=== PATIENT | male | born 1965 ===

== ENCOUNTER 2019-07-06 14:47 | Inpatient (IN) ==
[2019-07-06] MEDS ORDERED: GLUCAGON 1 MG VIAL IM PRN (17:20)
[2019-07-06] MEDS ORDERED: DEXTROSE 10% 250 ML BAG IV PRN (17:20)
[2019-07-06] MEDS ORDERED: DEXTROSE 50% 25 GM/50 ML VIAL IV PRN (17:57)
[2019-07-06 18:16] LABS: Basophils # 0.1 10*3/uL (0.0-0.2); Basophils % 0.2 % (0.0-0.8); Eosinophils # 0.3 10*3/uL (0.0-0.87); Eosinophils % 1.4 % (0.00-10.9); Hematocrit 30.5 VOL% (42.0-52.0); Hemoglobin 10.2 GM/DL (14.0-18.0); Immature Granulocytes Absolute 0.24 #; Lymphocytes # 1.3 10*3/uL (1.4-4.0); Lymphocytes % 5.6 % (21.2-54.2); Mean Corpuscular HGB Conc 33.4 GM/DL (32-36); Mean Corpuscular Volume 88.9 FL (87-102); Mean Platelet Volume 9.4 FL (9.6-12.0); Monocytes % 7.6 % (1.7-12.7); Neutrophils % 84.2 % (38.7-73.9); Platelet Count 339 T/CUMM (130-400); Red Blood Count 3.43 MC/CUMM (3.8-5.5); White Blood Count 23.7 T/CUMM (4-12)
[2019-07-06 18:32] LABS: Albumin 2.3 G/DL (3.4-5.0); Bilirubin,Total 0.7 MG/DL (0.2-1.0); Calcium 8.5 MG/DL (8.5-10.1); Osmolality,Calculated 274.1 MOS/KG (273-304); Total Protein 7.9 G/DL (6.4-8.3)
[2019-07-06 18:41] LABS: Band Neutrophils 1 % (0-10); Eosinophils 3 % (0-10); Lymphocytes 6 % (20-55); Segmented Neutrophils 84 % (50-85); Total Cells Counted 100
[2019-07-06 18:42] LABS: Platelet Estimate Normal; Reactive Lymphocytes Slight; Rouleau Slight
[2019-07-06] MEDS: SODIUM CHLORIDE 0.9% 1,000 ML IV SCH (19:15)
[2019-07-06] MEDS: POTASSIUM CHLORIDE 20 MEQ TABLET PO PRN (21:31)
[2019-07-06] MEDS: SIMVASTATIN 20 MG TABLET PO SCH (21:31)
[2019-07-06] MEDS: INSULIN LISPRO 100 UNIT/ML SUBCUT SCH (21:37)
[2019-07-06] MEDS: PIPERACILLIN/TAZOBACTAM 3,375 MG in SODIUM CHLORIDE 0.9% 100 ML IV SCH (21:40)
[2019-07-07] MEDS: POTASSIUM CHLORIDE 20 MEQ TABLET PO PRN (01:05)
[2019-07-07] MEDS: VANCOMYCIN INJ 1,250 MG in SODIUM CHLORIDE 0.9% 250 ML IV SCH ×2 (01:07→15:45)
[2019-07-07] MEDS: PIPERACILLIN/TAZOBACTAM 3,375 MG in SODIUM CHLORIDE 0.9% 100 ML IV SCH ×3 (03:10→22:14)
[2019-07-07 06:22] LABS: Basophils % 0.2 % (0.0-0.8); Eosinophils # 0.3 10*3/uL (0.0-0.87); Eosinophils % 1.9 % (0.00-10.9); Hematocrit 30.8 VOL% (42.0-52.0); Hemoglobin 10.3 GM/DL (14.0-18.0); Immature Granulocytes % 0.9 %; Immature Granulocytes Absolute 0.17 #; Lymphocytes # 1.6 10*3/uL (1.4-4.0); Lymphocytes % 8.6 % (21.2-54.2); Mean Corpuscular HGB Conc 33.4 GM/DL (32-36); Mean Corpuscular Volume 89.8 FL (87-102); Mean Platelet Volume 9.4 FL (9.6-12.0); Monocytes % 7.6 % (1.7-12.7); Neutrophils % 80.8 % (38.7-73.9); Platelet Count 347 T/CUMM (130-400); Red Blood Count 3.43 MC/CUMM (3.8-5.5); Red Cell Distribution Width 11.9 % (9.3-17.3); White Blood Count 18.3 T/CUMM (4-12)
[2019-07-07] MEDS: SODIUM CHLORIDE 0.9% 1,000 ML IV SCH ×2 (06:42→16:37)
[2019-07-07 06:50] LABS: Albumin 2.1 G/DL (3.4-5.0); Bilirubin,Total 0.9 MG/DL (0.2-1.0); Calcium 8.4 MG/DL (8.5-10.1); Total Protein 7.4 G/DL (6.4-8.3)
[2019-07-07] MEDS: INSULIN LISPRO 100 UNIT/ML SUBCUT SCH ×4 (07:38→21:56)
[2019-07-07] MEDS ORDERED: LIDOCAINE 1% 20 ML VIAL ONE (10:30)
[2019-07-07] MEDS: ASPIRIN EC 325 MG TABLET PO SCH (10:49)
[2019-07-07] MEDS: hydroCHLOROthiazide 25 MG TABLET PO SCH (10:53)
[2019-07-07] MEDS: captopriL 25 MG TABLET PO SCH (10:53)
[2019-07-07] MEDS ORDERED: MIDAZOLAM 2 MG/2 ML VIAL ONE (11:58)
[2019-07-07] MEDS ORDERED: LIDOCAINE 2% 5 ML VIAL ONE (11:59)
[2019-07-07] MEDS ORDERED: propofoL 200 MG/20 ML VIAL IV ONE (11:59)
[2019-07-07] MEDS ORDERED: KETAMINE 500 MG/10 ML VIAL ONE (12:00)
[2019-07-07] MEDS ORDERED: fentaNYL 100 MCG/2 ML VIAL ONE (12:00)
[2019-07-07] MEDS: SIMVASTATIN 20 MG TABLET PO SCH (21:34)
[2019-07-08] MEDS: PIPERACILLIN/TAZOBACTAM 3,375 MG in SODIUM CHLORIDE 0.9% 100 ML IV SCH ×3 (05:57→21:00)
[2019-07-08 06:57] LABS: Basophils % 0.2 % (0.0-0.8); Eosinophils # 0.5 10*3/uL (0.0-0.87); Eosinophils % 2.3 % (0.00-10.9); Hematocrit 29.9 VOL% (42.0-52.0); Hemoglobin 9.8 GM/DL (14.0-18.0); Immature Granulocytes % 0.9 %; Immature Granulocytes Absolute 0.17 #; Lymphocytes # 1.7 10*3/uL (1.4-4.0); Lymphocytes % 8.6 % (21.2-54.2); Mean Corpuscular HGB Conc 32.8 GM/DL (32-36); Mean Corpuscular Volume 90.9 FL (87-102); Mean Platelet Volume 9.4 FL (9.6-12.0); Monocytes % 7.6 % (1.7-12.7); Neutrophils % 80.4 % (38.7-73.9); Platelet Count 355 T/CUMM (130-400); Red Blood Count 3.29 MC/CUMM (3.8-5.5); Red Cell Distribution Width 11.9 % (9.3-17.3); White Blood Count 19.7 T/CUMM (4-12)
[2019-07-08 07:28] LABS: Albumin 1.7 G/DL (3.4-5.0); Calcium 8.4 MG/DL (8.5-10.1); Total Protein 7.3 G/DL (6.4-8.3)
[2019-07-08] MEDS ORDERED: LIDOCAINE 1% 20 ML VIAL ONE (08:33)
[2019-07-08] MEDS: INSULIN LISPRO 100 UNIT/ML SUBCUT SCH ×4 (08:49→21:16)
[2019-07-08] MEDS: hydroCHLOROthiazide 25 MG TABLET PO SCH (08:49)
[2019-07-08] MEDS: captopriL 25 MG TABLET PO SCH (08:49)
[2019-07-08] MEDS ORDERED: MIDAZOLAM 2 MG/2 ML VIAL ONE (09:52)
[2019-07-08] MEDS ORDERED: LIDOCAINE 2% 5 ML VIAL ONE (09:53)
[2019-07-08] MEDS ORDERED: propofoL 200 MG/20 ML VIAL IV ONE (09:53)
[2019-07-08] MEDS ORDERED: fentaNYL 100 MCG/2 ML VIAL ONE (09:53)
[2019-07-08] MEDS ORDERED: KETAMINE 500 MG/10 ML VIAL ONE (09:53)
[2019-07-08] MEDS: VANCOMYCIN INJ 1,250 MG in SODIUM CHLORIDE 0.9% 250 ML IV SCH (12:04)
[2019-07-08] MEDS: ASPIRIN EC 325 MG TABLET PO SCH (12:05)
[2019-07-08] MEDS: SODIUM CHLORIDE 0.9% 1,000 ML IV SCH ×2 (12:05→12:36)
[2019-07-08] MEDS: SIMVASTATIN 20 MG TABLET PO SCH (20:14)
[2019-07-09] MEDS: VANCOMYCIN INJ 1,250 MG in SODIUM CHLORIDE 0.9% 250 ML IV SCH (03:14)
[2019-07-09] MEDS: PIPERACILLIN/TAZOBACTAM 3,375 MG in SODIUM CHLORIDE 0.9% 100 ML IV SCH ×2 (05:25→15:20)
[2019-07-09] MEDS: INSULIN LISPRO 100 UNIT/ML SUBCUT SCH ×2 (09:18→13:16)
[2019-07-09] MEDS: captopriL 25 MG TABLET PO SCH (09:53)
[2019-07-09] MEDS: ASPIRIN EC 325 MG TABLET PO SCH (09:53)
[2019-07-09] MEDS: hydroCHLOROthiazide 25 MG TABLET PO SCH (09:53)
[2019-07-09] MEDS ORDERED: ONDANSETRON 4 MG/2 ML VIAL IV PRN (10:10)
[2019-07-09 12:51] VITALS: BP 163/77
== END 2019-07-09 16:11 | disposition home or self-care (01) | DRG 256 ==
LOC: SUATTDRO 17:01 → N.3E 17:01
PROVIDERS: ADMIT Internal Medicine; ATTEND Internal Medicine

== ENCOUNTER 2022-04-24 22:22 | Inpatient (IN) ==
[2022-04-25] MEDS ORDERED: DEXTROSE 50% 25 GM/50 ML VIAL IV PRN (01:47)
[2022-04-25] MEDS ORDERED: ONDANSETRON 4 MG/2 ML VIAL IV PRN (01:47)
[2022-04-25] MEDS ORDERED: MAGNESIUM SULF RIDER 4 GM/100 ML PREMIX IV PRN (01:47)
[2022-04-25] MEDS ORDERED: GLUCAGON 1 MG VIAL IM PRN (01:47)
[2022-04-25] MEDS ORDERED: MAGNESIUM SULF RIDER 2 GM/50 ML PREMIX IV PRN (01:47)
[2022-04-25] MEDS ORDERED: ACETAMINOPHEN 325 MG TABLET PO PRN (01:47)
[2022-04-25] MEDS ORDERED: DEXTROSE 10% 250 ML BAG IV PRN (02:06)
[2022-04-25] MEDS: LEVOFLOXACIN INJ 500 MG/100 ML PREMIX IV SCH (04:29)
[2022-04-25] MEDS: ALBUTEROL/IPRATROPIUM 3 ML NEB RESP TX SCH ×3 (07:33→19:56)
[2022-04-25 07:52] LABS: Basophils % 0.2 % (0.0-0.8); Eosinophils % 0.1 % (0.00-10.9); Hematocrit 28.5 VOL% (42.0-52.0); Immature Granulocytes % 0.6 %; Lymphocytes # 0.5 10*3/uL (1.4-4.0); Lymphocytes % 2.8 % (21.2-54.2); Mean Corpuscular HGB Conc 31.6 GM/DL (32-36); Mean Corpuscular Volume 97.9 FL (87-102); Mean Platelet Volume 9.5 FL (9.6-12.0); Monocytes # 1.1 10*3/uL (0.11-0.8); Monocytes % 6.1 % (1.7-12.7); Neutrophils % 90.2 % (38.7-73.9); Platelet Count 233 T/CUMM (130-400); Red Blood Count 2.91 MC/CUMM (3.8-5.5); Red Cell Distribution Width 13.5 % (9.3-17.3)
[2022-04-25 08:01] LABS: INR 1.1; PT Patient Result 11.6 SECS (10.1-12.1)
[2022-04-25 08:12] LABS: Hypochromia Slight; Lymphocytes 2 % (20-55); Platelet Estimate Adequate; Total Cells Counted 100
[2022-04-25 08:13] LABS: Microcytosis Slight
[2022-04-25 08:14] LABS: Bilirubin,Total 0.8 MG/DL (0.20-1.00); Calcium 8.8 MG/DL (8.5-10.1); Osmolality,Calculated 310.4 MOS/KG (273-304); Potassium 4.9 MMOL/L (3.5-5.1); Total Protein 6.7 G/DL (6.4-8.2)
[2022-04-25 08:59] LABS: Risk Ratio 2.11; VLDL Cholesterol 15.6 MG/DL
[2022-04-25] MEDS ORDERED: HEPARIN 5,000 UNIT/1 ML VIAL SUBCUT SCH (09:00)
[2022-04-25] MEDS: hydrALAZINE 25 MG TABLET PO SCH ×2 (11:52→20:44)
[2022-04-25] MEDS: ISOSORBIDE MONONITRATE 30 MG TABLET PO SCH (11:52)
[2022-04-25] MEDS: PANTOPRAZOLE 40 MG TABLET PO SCH (11:52)
[2022-04-25] MEDS: carvediloL 3.125 MG TABLET PO SCH ×2 (11:52→20:44)
[2022-04-25] MEDS: FUROSEMIDE 40 MG/4 ML VIAL IV SCH ×2 (11:54→20:00)
[2022-04-25] MEDS: INSULIN REGULAR 100 UNIT/ML SUBCUT SCH ×4 (12:04→22:44)
[2022-04-25] MEDS: FUROSEMIDE INJ 200 MG in SODIUM CHLORIDE 0.9% 80 ML IV SCH (20:06)
[2022-04-25] MEDS: SIMVASTATIN 20 MG TABLET PO SCH (20:44)
[2022-04-26] MEDS: ALBUTEROL/IPRATROPIUM 3 ML NEB RESP TX SCH ×4 (04:20→21:15)
[2022-04-26 05:41] LABS: Basophils % 0.3 % (0.0-0.8); Eosinophils # 0.7 10*3/uL (0.0-0.87); Eosinophils % 7.4 % (0.00-10.9); Hematocrit 24.5 VOL% (42.0-52.0); Hemoglobin 7.6 GM/DL (14.0-18.0); Immature Granulocytes % 0.4 %; Immature Granulocytes Absolute 0.04 #; Lymphocytes # 0.8 10*3/uL (1.4-4.0); Lymphocytes % 8.7 % (21.2-54.2); Mean Corpuscular Volume 98.8 FL (87-102); Mean Platelet Volume 9.5 FL (9.6-12.0); Monocytes # 1.1 10*3/uL (0.11-0.8); Monocytes % 11.4 % (1.7-12.7); Neutrophils % 71.8 % (38.7-73.9); Platelet Count 189 T/CUMM (130-400); Red Blood Count 2.48 MC/CUMM (3.8-5.5); Red Cell Distribution Width 13.5 % (9.3-17.3); White Blood Count 9.71 T/CUMM (4-12)
[2022-04-26 06:04] LABS: Phosphorous 5.1 MG/DL (2.5-4.9); Uric Acid 7.8 MG/DL (3.5-7.2)
[2022-04-26 06:17] LABS: Albumin 2.7 G/DL (3.4-5.0); Bilirubin,Total 0.6 MG/DL (0.20-1.00); Calcium 8.5 MG/DL (8.5-10.1); Osmolality,Calculated 303.8 MOS/KG (273-304); Total Protein 6.2 G/DL (6.4-8.2)
[2022-04-26 06:25] LABS: Bacteria,Urine Occasional /HPF (Few); Hyaline Casts,Urine 3 /LPF (0-3); Mucus,Urine Occasional /LPF (Occasional); RBC,Urine 31 /HPF (0-4)
[2022-04-26 06:27] LABS: Bilirubin,Urine Negative (Negative); Blood, Urine Moderate mg/dL (Negative); Glucose,Urine (UA) Negative (Negative); Ketones,Urine Negative (Negative); Nitrite,Urine Negative (Negative); Protein,Urine >=300 mg/dL (Negative); Urine Appearance Clear (Clear); Urine Color Yellow (Yellow); Urine Urobilinogen 0.2 eU/dL (<2.0); Urine pH 5.5 (4.5-8.0)
[2022-04-26] MEDS: LEVOTHYROXINE 75 MCG TABLET PO SCH (06:33)
[2022-04-26] MEDS ORDERED: ASPIRIN EC 325 MG TABLET PO SCH (09:00)
[2022-04-26] MEDS ORDERED: carvediloL 6.25 MG TABLET PO SCH (09:00)
[2022-04-26] MEDS: INSULIN REGULAR 100 UNIT/ML SUBCUT SCH ×4 (09:50→21:45)
[2022-04-26] MEDS: amLODIPine 10 MG TABLET PO SCH (09:53)
[2022-04-26] MEDS: PANTOPRAZOLE 40 MG TABLET PO SCH (09:53)
[2022-04-26] MEDS: ISOSORBIDE MONONITRATE 30 MG TABLET PO SCH (09:53)
[2022-04-26] MEDS: FUROSEMIDE INJ 200 MG in SODIUM CHLORIDE 0.9% 80 ML IV SCH (16:31)
[2022-04-26] MEDS: carvediloL 12.5 MG TABLET PO SCH (16:36)
[2022-04-26] MEDS: SIMVASTATIN 20 MG TABLET PO SCH (21:46)
[2022-04-27] MEDS: ALBUTEROL/IPRATROPIUM 3 ML NEB RESP TX SCH ×4 (01:58→18:55)
[2022-04-27] MEDS: LEVOFLOXACIN INJ 500 MG/100 ML PREMIX IV SCH (02:22)
[2022-04-27] MEDS: LEVOTHYROXINE 75 MCG TABLET PO SCH (06:13)
[2022-04-27 09:11] LABS: Osmolality,Calculated 309.6 MOS/KG (273-304); Potassium 4.1 MMOL/L (3.5-5.1)
[2022-04-27] MEDS: INSULIN REGULAR 100 UNIT/ML SUBCUT SCH ×4 (09:23→21:54)
[2022-04-27] MEDS: carvediloL 12.5 MG TABLET PO SCH ×2 (09:29→16:50)
[2022-04-27] MEDS: PANTOPRAZOLE 40 MG TABLET PO SCH (09:29)
[2022-04-27] MEDS: ASPIRIN EC 81 MG TABLET PO SCH (09:30)
[2022-04-27] MEDS: ISOSORBIDE MONONITRATE 30 MG TABLET PO SCH (09:30)
[2022-04-27] MEDS: amLODIPine 10 MG TABLET PO SCH (09:30)
[2022-04-27] MEDS: FUROSEMIDE INJ 200 MG in SODIUM CHLORIDE 0.9% 80 ML IV SCH (10:39)
[2022-04-27] MEDS ORDERED: DARBEPOETIN ALFA 100 MCG/ML VIAL SUBCUT SCH (15:00)
[2022-04-27] MEDS: SIMVASTATIN 20 MG TABLET PO SCH (21:54)
[2022-04-28] MEDS: ALBUTEROL/IPRATROPIUM 3 ML NEB RESP TX SCH ×4 (00:40→19:15)
[2022-04-28 04:48] LABS: Basophils # 0.1 10*3/uL (0.0-0.2); Basophils % 0.4 % (0.0-0.8); Eosinophils # 1.1 10*3/uL (0.0-0.87); Eosinophils % 9.1 % (0.00-10.9); Hemoglobin 7.7 GM/DL (14.0-18.0); Immature Granulocytes % 0.4 %; Immature Granulocytes Absolute 0.05 #; Lymphocytes % 8.2 % (21.2-54.2); Mean Corpuscular HGB Conc 30.8 GM/DL (32-36); Mean Corpuscular Volume 98.4 FL (87-102); Mean Platelet Volume 9.3 FL (9.6-12.0); Monocytes # 1.3 10*3/uL (0.11-0.8); Monocytes % 10.9 % (1.7-12.7); Platelet Count 192 T/CUMM (130-400); Red Blood Count 2.54 MC/CUMM (3.8-5.5); Red Cell Distribution Width 13.4 % (9.3-17.3)
[2022-04-28 05:23] LABS: Calcium 8.5 MG/DL (8.5-10.1); Osmolality,Calculated 308.8 MOS/KG (273-304); Potassium 4.1 MMOL/L (3.5-5.1)
[2022-04-28 05:33] LABS: % Iron Saturation 7.9 % (18-50); Ferritin 94.6 ng/mL (26-388)
[2022-04-28] MEDS: FUROSEMIDE INJ 200 MG in SODIUM CHLORIDE 0.9% 80 ML IV SCH (06:18)
[2022-04-28] MEDS: LEVOTHYROXINE 75 MCG TABLET PO SCH (06:19)
[2022-04-28] MEDS: INSULIN REGULAR 100 UNIT/ML SUBCUT SCH ×4 (07:30→22:22)
[2022-04-28 08:24] LABS: Protein/Creatinine Ratio,Urine 3.1 RATIO
[2022-04-28] MEDS: ASPIRIN EC 81 MG TABLET PO SCH (08:42)
[2022-04-28] MEDS: ISOSORBIDE MONONITRATE 30 MG TABLET PO SCH (08:42)
[2022-04-28] MEDS: PANTOPRAZOLE 40 MG TABLET PO SCH (08:42)
[2022-04-28] MEDS: carvediloL 12.5 MG TABLET PO SCH ×2 (08:42→16:36)
[2022-04-28] MEDS: amLODIPine 10 MG TABLET PO SCH (08:42)
[2022-04-28] MEDS: ERGOCALCIFEROL 2000 UNIT PO SCH (08:44)
[2022-04-28] MEDS: FERRIC GLUCONATE COMPLEX 125 MG in SODIUM CHLORIDE 0.9% 100 ML IV SCH (10:15)
[2022-04-28] MEDS: SIMVASTATIN 20 MG TABLET PO SCH (22:22)
[2022-04-29] MEDS: ALBUTEROL/IPRATROPIUM 3 ML NEB RESP TX SCH ×4 (01:55→20:13)
[2022-04-29] MEDS: LEVOFLOXACIN INJ 500 MG/100 ML PREMIX IV SCH (03:10)
[2022-04-29] MEDS: LEVOTHYROXINE 75 MCG TABLET PO SCH (05:31)
[2022-04-29 05:47] LABS: Basophils % 0.2 % (0.0-0.8); Eosinophils # 1.1 10*3/uL (0.0-0.87); Eosinophils % 9.3 % (0.00-10.9); Hemoglobin 7.6 GM/DL (14.0-18.0); Immature Granulocytes % 0.5 %; Immature Granulocytes Absolute 0.06 #; Lymphocytes # 0.8 10*3/uL (1.4-4.0); Lymphocytes % 7.2 % (21.2-54.2); Mean Corpuscular HGB Conc 31.7 GM/DL (32-36); Mean Corpuscular Volume 98.4 FL (87-102); Mean Platelet Volume 9.9 FL (9.6-12.0); Monocytes # 1.3 10*3/uL (0.11-0.8); Monocytes % 11.7 % (1.7-12.7); Neutrophils % 71.1 % (38.7-73.9); Platelet Count 192 T/CUMM (130-400); Red Blood Count 2.44 MC/CUMM (3.8-5.5); Red Cell Distribution Width 13.3 % (9.3-17.3); White Blood Count 11.41 T/CUMM (4-12)
[2022-04-29 06:04] LABS: Calcium 8.4 MG/DL (8.5-10.1); Osmolality,Calculated 308.8 MOS/KG (273-304); Potassium 4.1 MMOL/L (3.5-5.1)
[2022-04-29] MEDS: INSULIN REGULAR 100 UNIT/ML SUBCUT SCH ×4 (09:53→21:35)
[2022-04-29] MEDS: amLODIPine 10 MG TABLET PO SCH (09:54)
[2022-04-29] MEDS: PANTOPRAZOLE 40 MG TABLET PO SCH (09:54)
[2022-04-29] MEDS: ERGOCALCIFEROL 2000 UNIT PO SCH (09:54)
[2022-04-29] MEDS: ASPIRIN EC 81 MG TABLET PO SCH (09:54)
[2022-04-29] MEDS: carvediloL 12.5 MG TABLET PO SCH ×2 (09:54→17:00)
[2022-04-29] MEDS: ISOSORBIDE MONONITRATE 30 MG TABLET PO SCH (09:54)
[2022-04-29] MEDS: FERRIC GLUCONATE COMPLEX 125 MG in SODIUM CHLORIDE 0.9% 100 ML IV SCH (09:59)
[2022-04-29] MEDS: SIMVASTATIN 20 MG TABLET PO SCH (20:00)
[2022-04-30] MEDS: ALBUTEROL/IPRATROPIUM 3 ML NEB RESP TX SCH ×4 (01:41→19:12)
[2022-04-30] MEDS: LEVOTHYROXINE 75 MCG TABLET PO SCH (05:35)
[2022-04-30 08:07] LABS: Basophils % 0.2 % (0.0-0.8); Eosinophils % 8.8 % (0.00-10.9); Hematocrit 25.5 VOL% (42.0-52.0); Hemoglobin 8.1 GM/DL (14.0-18.0); Immature Granulocytes % 0.8 %; Immature Granulocytes Absolute 0.09 #; Lymphocytes # 1.1 10*3/uL (1.4-4.0); Lymphocytes % 9.3 % (21.2-54.2); Mean Corpuscular HGB Conc 31.8 GM/DL (32-36); Mean Corpuscular Volume 98.5 FL (87-102); Mean Platelet Volume 9.3 FL (9.6-12.0); Monocytes # 1.5 10*3/uL (0.11-0.8); Monocytes % 12.9 % (1.7-12.7); Platelet Count 205 T/CUMM (130-400); Red Blood Count 2.59 MC/CUMM (3.8-5.5); Red Cell Distribution Width 13.4 % (9.3-17.3)
[2022-04-30 08:29] LABS: Calcium 8.4 MG/DL (8.5-10.1); Osmolality,Calculated 312.8 MOS/KG (273-304)
[2022-04-30] MEDS: ISOSORBIDE MONONITRATE 30 MG TABLET PO SCH (08:39)
[2022-04-30] MEDS: amLODIPine 10 MG TABLET PO SCH (08:39)
[2022-04-30] MEDS: PANTOPRAZOLE 40 MG TABLET PO SCH (08:39)
[2022-04-30] MEDS: ASPIRIN EC 81 MG TABLET PO SCH (08:39)
[2022-04-30] MEDS: carvediloL 12.5 MG TABLET PO SCH ×2 (08:39→16:39)
[2022-04-30] MEDS: INSULIN REGULAR 100 UNIT/ML SUBCUT SCH ×4 (08:40→21:42)
[2022-04-30] MEDS: FERRIC GLUCONATE COMPLEX 125 MG in SODIUM CHLORIDE 0.9% 100 ML IV SCH (08:40)
[2022-04-30] MEDS: ERGOCALCIFEROL 2000 UNIT PO SCH (11:26)
[2022-04-30 12:21] LABS: Lymphocytes,Pleural Fluid 86 %; Monocytes,Pleural Fluid 13 %; Neutrophils,Pleural Fluid 1 %; RBC,Pleural Fluid 9 T/CUMM
[2022-04-30 12:24] LABS: Amylase,Body Fluid 16 U/L; Glucose,Pleural Fluid 138 MG/DL; LDH,Body Fluid 121 U/L; Total Protein,Body Fluid 2.1 G/DL
[2022-04-30] MEDS: SIMVASTATIN 20 MG TABLET PO SCH (21:42)
[2022-05-01] MEDS: ALBUTEROL/IPRATROPIUM 3 ML NEB RESP TX SCH ×4 (00:32→21:34)
[2022-05-01] MEDS: LEVOFLOXACIN INJ 500 MG/100 ML PREMIX IV SCH (02:23)
[2022-05-01 04:43] LABS: Basophils % 0.3 % (0.0-0.8); Eosinophils # 0.8 10*3/uL (0.0-0.87); Eosinophils % 7.7 % (0.00-10.9); Hematocrit 24.9 VOL% (42.0-52.0); Hemoglobin 7.7 GM/DL (14.0-18.0); Immature Granulocytes % 0.9 %; Immature Granulocytes Absolute 0.09 #; Lymphocytes # 0.8 10*3/uL (1.4-4.0); Mean Corpuscular HGB Conc 30.9 GM/DL (32-36); Mean Corpuscular Volume 99.2 FL (87-102); Mean Platelet Volume 9.7 FL (9.6-12.0); Monocytes # 1.3 10*3/uL (0.11-0.8); Monocytes % 12.4 % (1.7-12.7); Neutrophils % 70.7 % (38.7-73.9); Platelet Count 205 T/CUMM (130-400); Red Blood Count 2.51 MC/CUMM (3.8-5.5); Red Cell Distribution Width 13.4 % (9.3-17.3)
[2022-05-01 05:07] LABS: Calcium 8.1 MG/DL (8.5-10.1); Osmolality,Calculated 309.1 MOS/KG (273-304)
[2022-05-01] MEDS: LEVOTHYROXINE 75 MCG TABLET PO SCH (05:37)
[2022-05-01] MEDS: INSULIN REGULAR 100 UNIT/ML SUBCUT SCH ×4 (08:17→21:00)
[2022-05-01] MEDS: PANTOPRAZOLE 40 MG TABLET PO SCH (09:06)
[2022-05-01] MEDS: ISOSORBIDE MONONITRATE 30 MG TABLET PO SCH (09:06)
[2022-05-01] MEDS: amLODIPine 10 MG TABLET PO SCH (09:06)
[2022-05-01] MEDS: FERRIC GLUCONATE COMPLEX 125 MG in SODIUM CHLORIDE 0.9% 100 ML IV SCH (09:07)
[2022-05-01] MEDS: ASPIRIN EC 81 MG TABLET PO SCH (09:07)
[2022-05-01] MEDS: carvediloL 12.5 MG TABLET PO SCH ×2 (09:53→16:20)
[2022-05-01] MEDS: ERGOCALCIFEROL 2000 UNIT PO SCH (12:07)
[2022-05-01] MEDS: SIMVASTATIN 20 MG TABLET PO SCH (21:00)
[2022-05-02] MEDS: ALBUTEROL/IPRATROPIUM 3 ML NEB RESP TX SCH ×4 (02:37→18:50)
[2022-05-02 05:24] LABS: Basophils % 0.4 % (0.0-0.8); Eosinophils # 1.2 10*3/uL (0.0-0.87); Eosinophils % 10.4 % (0.00-10.9); Hematocrit 25.4 VOL% (42.0-52.0); Hemoglobin 7.8 GM/DL (14.0-18.0); Immature Granulocytes Absolute 0.11 #; Lymphocytes # 0.8 10*3/uL (1.4-4.0); Lymphocytes % 7.4 % (21.2-54.2); Mean Corpuscular HGB Conc 30.7 GM/DL (32-36); Mean Corpuscular Volume 98.8 FL (87-102); Mean Platelet Volume 9.9 FL (9.6-12.0); Monocytes # 1.3 10*3/uL (0.11-0.8); Monocytes % 11.1 % (1.7-12.7); Neutrophils % 69.7 % (38.7-73.9); Platelet Count 223 T/CUMM (130-400); Red Blood Count 2.57 MC/CUMM (3.8-5.5); Red Cell Distribution Width 13.3 % (9.3-17.3); White Blood Count 11.23 T/CUMM (4-12)
[2022-05-02 05:34] LABS: Calcium 8.1 MG/DL (8.5-10.1); Osmolality,Calculated 310.3 MOS/KG (273-304); Potassium 4.3 MMOL/L (3.5-5.1)
[2022-05-02] MEDS: LEVOTHYROXINE 75 MCG TABLET PO SCH (05:49)
[2022-05-02] MEDS: ISOSORBIDE MONONITRATE 30 MG TABLET PO SCH (09:44)
[2022-05-02] MEDS: INSULIN REGULAR 100 UNIT/ML SUBCUT SCH ×4 (09:44→21:15)
[2022-05-02] MEDS: ASPIRIN EC 81 MG TABLET PO SCH (09:44)
[2022-05-02] MEDS: ERGOCALCIFEROL 2000 UNIT PO SCH (09:45)
[2022-05-02] MEDS: carvediloL 12.5 MG TABLET PO SCH ×2 (09:45→18:07)
[2022-05-02] MEDS: PANTOPRAZOLE 40 MG TABLET PO SCH (09:45)
[2022-05-02] MEDS: amLODIPine 10 MG TABLET PO SCH (09:45)
[2022-05-02] MEDS: FERRIC GLUCONATE COMPLEX 125 MG in SODIUM CHLORIDE 0.9% 100 ML IV SCH (09:48)
[2022-05-02] MEDS: SIMVASTATIN 20 MG TABLET PO SCH (21:14)
[2022-05-03] MEDS: ALBUTEROL/IPRATROPIUM 3 ML NEB RESP TX SCH ×3 (00:40→13:40)
[2022-05-03 04:53] LABS: Basophils % 0.3 % (0.0-0.8); Eosinophils # 1.5 10*3/uL (0.0-0.87); Eosinophils % 12.7 % (0.00-10.9); Hematocrit 24.5 VOL% (42.0-52.0); Hemoglobin 7.8 GM/DL (14.0-18.0); Immature Granulocytes % 0.7 %; Immature Granulocytes Absolute 0.08 #; Lymphocytes # 0.8 10*3/uL (1.4-4.0); Mean Corpuscular HGB Conc 31.8 GM/DL (32-36); Mean Corpuscular Volume 98.8 FL (87-102); Mean Platelet Volume 9.4 FL (9.6-12.0); Monocytes # 1.4 10*3/uL (0.11-0.8); Monocytes % 12.1 % (1.7-12.7); Neutrophils % 67.2 % (38.7-73.9); Platelet Count 210 T/CUMM (130-400); Red Blood Count 2.48 MC/CUMM (3.8-5.5); Red Cell Distribution Width 13.6 % (9.3-17.3)
[2022-05-03 05:14] LABS: Osmolality,Calculated 312.3 MOS/KG (273-304); Phosphorous 6.2 MG/DL (2.5-4.9); Potassium 4.2 MMOL/L (3.5-5.1); Uric Acid 9.2 MG/DL (3.5-7.2)
[2022-05-03 05:22] LABS: Eosinophils 14 % (0-10); Lymphocytes 8 % (20-55); Platelet Estimate Adequate; Total Cells Counted 100
[2022-05-03] MEDS: LEVOTHYROXINE 75 MCG TABLET PO SCH (05:31)
[2022-05-03] MEDS: INSULIN REGULAR 100 UNIT/ML SUBCUT SCH ×2 (08:05→13:46)
[2022-05-03] MEDS: amLODIPine 10 MG TABLET PO SCH (08:06)
[2022-05-03] MEDS: ISOSORBIDE MONONITRATE 30 MG TABLET PO SCH (08:06)
[2022-05-03] MEDS: carvediloL 12.5 MG TABLET PO SCH (08:06)
[2022-05-03] MEDS: ASPIRIN EC 81 MG TABLET PO SCH (08:06)
[2022-05-03] MEDS: PANTOPRAZOLE 40 MG TABLET PO SCH (08:06)
[2022-05-03] MEDS: ERGOCALCIFEROL 2000 UNIT PO SCH (08:24)
[2022-05-03 08:58] LABS: Hyaline Casts,Urine 27 /LPF (0-3); Mucus,Urine Occasional /LPF (Occasional); RBC,Urine 49 /HPF (0-4); Squamous Epithelial Cell,Urine Occasional /HPF (0-10); Urine Appearance Clear (Clear); Urine Color Yellow (Yellow); Urine Specific Gravity 1.025 (1.001-1.035)
[2022-05-03 08:59] LABS: Bilirubin,Urine Negative (Negative); Blood, Urine Trace mg/dL (Negative); Glucose,Urine (UA) 100 mg/dL (Negative); Ketones,Urine Negative (Negative); Nitrite,Urine Negative (Negative); Protein,Urine >=300 mg/dL (Negative); Urine Urobilinogen 0.2 eU/dL (<2.0)
[2022-05-03] MEDS ORDERED: allopurinoL 100 MG TABLET PO SCH (09:00)
[2022-05-03] MEDS: FERRIC GLUCONATE COMPLEX 125 MG in SODIUM CHLORIDE 0.9% 100 ML IV SCH (09:38)
[2022-05-03 12:09] VITALS: BP 125/62
== END 2022-05-03 15:42 | disposition home health service (06) | DRG 193 ==
LOC: N.TELEN → SUATTDRO 04-25 01:15
PROVIDERS: ADMIT Internal Medicine; ATTEND Internal Medicine